=== PATIENT | female | born 1945 | race Caucasian/White ===

== ENCOUNTER 2022-02-17 15:45 | Inpatient (IN) | payer MEDICARE, BC ==
[2022-02-17 16:19] LABS: Hemoglobin 10.8 g/dL (12.0-16.0); Mean Corpuscular HGB CONC 28.7 g/dL (32.0-36.0); Mean Corpuscular Hemoglobin 23.4 pg (27.0-31.0); Mean Corpuscular Volume 81.7 fL (78.0-98.0); Mean Platelet Volume 7.7 fL (7.4-10.4); Platelet Count 207 thou/uL (130-400); RBC Distribution Width 16.2 % (11.5-14.5); Red Blood Cell (RBC) Count 4.62 mill/uL (4.20-5.40); White Blood Cell (WBC) Count 7.1 thou/uL (4.8-10.8)
[2022-02-17 16:40] LABS: ALT (SGPT) 30 U/L (8-55); AST (SGOT) 30 U/L (5-34); Albumin 3.6 g/dL (3.4-4.8); Alkaline Phosphatase 80 U/L (40-110); Anion Gap 12 mmol/L (10-20); BUN (Urea Nitrogen) 29 mg/dL (9.8-20.1); Bilirubin, Total 0.3 mg/dL (0.2-1.2); Calc. Creatinine Clearance 0 mL/min (70-130); Carbon Dioxide 29 mmol/L (23-31); Chloride 102 mmol/L (98-107); Globulin 3.6 g/dL (2.4-3.5); Glucose 124 mg/dL (83-110); Lipase 45 U/L (8-78); Potassium 4.4 mmol/L (3.5-5.1); Protein, Total 7.2 g/dL (5.8-8.1); Sodium 139 mmol/L (136-145)
[2022-02-17 16:51] LABS: Anisocytosis SLIGHT = 6-15 cells (100X) (0-5/hpf); Eosinophils 5 % (0-10); Hypochromia SLIGHT = 6-15 cells (100X) (0-5/hpf); Lymphocytes 25 % (21-51); MDiff Complete? YES; Monocytes 9 % (0-10); Neutrophil 60 % (42-75); Platelet Morphology Comment Appears Adequate; Polychromasia SLIGHT = 2-3 cells (100X) (0-2/hpf)
[2022-02-17] MEDS ORDERED: Furosemide 40 MG/4 ML VIAL ONE (17:09)
[2022-02-17 18:54] LABS: Bilirubin Negative (Negative); Blood, Urine 2+ (Negative); Clarity Clear (Clear); Glucose, Urine (Dipstick) Normal (Negative); Ketone, Urine Negative (Negative); Leukocyte Negative Leu/uL (Negative); Nitrite Negative (Negative); Protein, Urine (Dipstick) Negative (Neg-Trace); RBC/HPF 0-3 HPF (0-3); Specific Gravity, Urine 1.007 (1.002-1.036); Squamous Epithelial 0-3 HPF (0-3); Urobilinogen Normal mg/dL (Less than 2); WBC/HPF 0-3 HPF (0-3)
[2022-02-17 19:09] LABS: Bacteria/HPF Rare-Few HPF (None Seen)
[2022-02-17] MEDS ORDERED: Senokot S 8.6-50 MG TAB PO PRN (19:20)
[2022-02-17] MEDS ORDERED: Ondansetron PF 4 MG/2 ML Vial IVP PRN (19:20)
[2022-02-17 20:34] LABS: ALT (SGPT) 29 U/L (8-55); AST (SGOT) 28 U/L (5-34); Albumin 3.5 g/dL (3.4-4.8); Alkaline Phosphatase 77 U/L (40-110); Anion Gap 13 mmol/L (10-20); BUN (Urea Nitrogen) 28 mg/dL (9.8-20.1); Bilirubin, Total 0.4 mg/dL (0.2-1.2); Calc. Creatinine Clearance 0 mL/min (70-130); Calcium 9.1 mg/dL (7.8-10.44); Carbon Dioxide 33 mmol/L (23-31); Chloride 101 mmol/L (98-107); Globulin 3.4 g/dL (2.4-3.5); Glucose 89 mg/dL (83-110); Potassium 4.5 mmol/L (3.5-5.1); Protein, Total 6.9 g/dL (5.8-8.1); Sodium 142 mmol/L (136-145)
[2022-02-17 20:36] LABS: Hemoglobin 10.5 g/dL (12.0-16.0); Mean Corpuscular HGB CONC 29.3 g/dL (32.0-36.0); Mean Corpuscular Volume 81.9 fL (78.0-98.0); Mean Platelet Volume 7.6 fL (7.4-10.4); Platelet Count 192 thou/uL (130-400); Red Blood Cell (RBC) Count 4.37 mill/uL (4.20-5.40); White Blood Cell (WBC) Count 6.5 thou/uL (4.8-10.8)
[2022-02-17 20:50] LABS: Band 7 % (5-11); Hypochromia SLIGHT = 6-15 cells (100X) (0-5/hpf); Lymphocytes 15 % (21-51); MDiff Complete? YES; Monocytes 8 % (0-10); Neutrophil 70 % (42-75); Platelet Morphology Comment Appears Adequate
[2022-02-17] MEDS ORDERED: Carvedilol 6.25 MG TAB PO SCH (21:00)
[2022-02-17] MEDS: Apixaban 5 MG TAB PO SCH (21:55)
[2022-02-17] MEDS: Acetaminophen 325 MG TAB PO PRN (21:59)
[2022-02-17] MEDS: Melatonin 3 MG TAB PO PRN (22:00)
[2022-02-18] MEDS: Furosemide 40 MG/4 ML VIAL SLOW IVP SCH ×2 (05:56→15:28)
[2022-02-18] MEDS ORDERED: Carvedilol 6.25 MG TAB PO SCH (08:00)
[2022-02-18] MEDS: Aspirin Chewable 81 MG TAB PO SCH (10:03)
[2022-02-18] MEDS: Apixaban 5 MG TAB PO SCH ×2 (10:03→20:51)
[2022-02-18] MEDS: Spironolactone 25 MG TAB PO SCH (10:04)
[2022-02-18] MEDS: Polyethylene Glycol 3350 17 GM Packet PO SCH (10:04)
[2022-02-18] MEDS ORDERED: hydrALAZINE 20 MG/ML VIAL SLOW IVP PRN (12:59)
[2022-02-18 13:46] LABS: Anion Gap 14 mmol/L (10-20); BUN (Urea Nitrogen) 28 mg/dL (9.8-20.1); Calc. Creatinine Clearance 67 mL/min (70-130); Carbon Dioxide 31 mmol/L (23-31); Chloride 99 mmol/L (98-107); Glucose 118 mg/dL (83-110); Magnesium 1.7 mg/dL (1.6-2.6); Potassium 3.9 mmol/L (3.5-5.1); Sodium 140 mmol/L (136-145)
[2022-02-18] MEDS ORDERED: Electrolyte Replacement Protocol 1 EACH FS PRN (15:00)
[2022-02-18] MEDS ORDERED: Electrolyte Replacement Protocol FS PRN (18:00)
[2022-02-18] MEDS ORDERED: Magnesium 2 GM/50 ML(in water) 2 GM in Premix Bag 1 BAG IVPB SCH (18:00)
[2022-02-18] MEDS: Carvedilol 6.25 MG TAB PO SCH (18:24)
[2022-02-18] MEDS: Melatonin 3 MG TAB PO PRN (20:51)
[2022-02-19 04:56] LABS: Anion Gap 13 mmol/L (10-20); BUN (Urea Nitrogen) 30 mg/dL (9.8-20.1); Calc. Creatinine Clearance 74 mL/min (70-130); Calcium 8.8 mg/dL (7.8-10.44); Carbon Dioxide 33 mmol/L (23-31); Chloride 99 mmol/L (98-107); Glucose 87 mg/dL (83-110); Magnesium 2.2 mg/dL (1.6-2.6); Sodium 141 mmol/L (136-145)
[2022-02-19] MEDS: Furosemide 40 MG/4 ML VIAL SLOW IVP SCH (06:05)
[2022-02-19] MEDS: Apixaban 5 MG TAB PO SCH ×2 (08:49→20:04)
[2022-02-19] MEDS: Aspirin Chewable 81 MG TAB PO SCH (08:49)
[2022-02-19] MEDS: Carvedilol 6.25 MG TAB PO SCH ×2 (08:49→16:59)
[2022-02-19] MEDS: Polyethylene Glycol 3350 17 GM Packet PO SCH (08:50)
[2022-02-19] MEDS ORDERED: Spironolactone 25 MG TAB PO SCH (09:00)
[2022-02-19 12:31] VITALS: BMI 41.5
[2022-02-19] MEDS: Acetaminophen 325 MG TAB PO PRN (20:03)
[2022-02-19] MEDS: Melatonin 3 MG TAB PO PRN (20:04)
[2022-02-20 05:04] LABS: Anion Gap 13 mmol/L (10-20); BUN (Urea Nitrogen) 28 mg/dL (9.8-20.1); Calc. Creatinine Clearance 78 mL/min (70-130); Calcium 9.1 mg/dL (7.8-10.44); Carbon Dioxide 36 mmol/L (23-31); Chloride 95 mmol/L (98-107); Glucose 88 mg/dL (83-110); Magnesium 2.1 mg/dL (1.6-2.6); Potassium 4.1 mmol/L (3.5-5.1); Sodium 140 mmol/L (136-145)
[2022-02-20] MEDS: Carvedilol 6.25 MG TAB PO SCH ×2 (09:32→17:56)
[2022-02-20] MEDS: Apixaban 5 MG TAB PO SCH ×2 (09:33→19:07)
[2022-02-20] MEDS: Spironolactone 25 MG TAB PO SCH (09:35)
[2022-02-20] MEDS: Furosemide 40 MG/4 ML VIAL SLOW IVP SCH ×2 (09:36→12:04)
[2022-02-20] MEDS: Aspirin Chewable 81 MG TAB PO SCH (09:36)
[2022-02-20] MEDS: Polyethylene Glycol 3350 17 GM Packet PO SCH (09:38)
[2022-02-20] MEDS: Melatonin 3 MG TAB PO PRN (23:54)
[2022-02-20] MEDS: Acetaminophen 325 MG TAB PO PRN (23:54)
[2022-02-21 05:06] LABS: Anion Gap 12 mmol/L (10-20); BUN (Urea Nitrogen) 22 mg/dL (9.8-20.1); Calc. Creatinine Clearance 89 mL/min (70-130); Carbon Dioxide 36 mmol/L (23-31); Chloride 94 mmol/L (98-107); Glucose 88 mg/dL (83-110); Potassium 3.7 mmol/L (3.5-5.1); Sodium 138 mmol/L (136-145)
[2022-02-21] MEDS: Furosemide 40 MG/4 ML VIAL SLOW IVP SCH (08:24)
[2022-02-21] MEDS: Aspirin Chewable 81 MG TAB PO SCH (08:25)
[2022-02-21] MEDS: Apixaban 5 MG TAB PO SCH ×2 (08:25→20:44)
[2022-02-21] MEDS: Spironolactone 25 MG TAB PO SCH (08:25)
[2022-02-21] MEDS: Carvedilol 6.25 MG TAB PO SCH ×2 (08:25→17:29)
[2022-02-21] MEDS: Polyethylene Glycol 3350 17 GM Packet PO SCH (08:26)
[2022-02-21] MEDS: Melatonin 3 MG TAB PO PRN (20:48)
[2022-02-22] MEDS ORDERED: Pantoprazole 40 MG VIAL IVP SCH (02:30)
[2022-02-22 05:32] LABS: Anion Gap 16 mmol/L (10-20); BUN (Urea Nitrogen) 24 mg/dL (9.8-20.1); Calc. Creatinine Clearance 69 mL/min (70-130); Calcium 9.3 mg/dL (7.8-10.44); Carbon Dioxide 33 mmol/L (23-31); Chloride 92 mmol/L (98-107); Glucose 96 mg/dL (83-110); Potassium 3.8 mmol/L (3.5-5.1); Sodium 137 mmol/L (136-145)
[2022-02-22 05:34] LABS: Anisocytosis SLIGHT = 6-15 cells (100X) (0-5/hpf); Band 13 % (5-11); Eosinophils 5 % (0-10); Hemoglobin 11.5 g/dL (12.0-16.0); Lymphocytes 25 % (21-51); MDiff Complete? YES; Mean Corpuscular HGB CONC 29.9 g/dL (32.0-36.0); Mean Corpuscular Hemoglobin 23.7 pg (27.0-31.0); Mean Corpuscular Volume 79.2 fL (78.0-98.0); Mean Platelet Volume 8.2 fL (7.4-10.4); Monocytes 4 % (0-10); Neutrophil 53 % (42-75); Platelet Count 206 thou/uL (130-400); RBC Distribution Width 15.8 % (11.5-14.5); Red Blood Cell (RBC) Count 4.85 mill/uL (4.20-5.40); White Blood Cell (WBC) Count 5.9 thou/uL (4.8-10.8)
[2022-02-22] MEDS: Polyethylene Glycol 3350 17 GM Packet PO SCH (08:29)
[2022-02-22] MEDS: Carvedilol 6.25 MG TAB PO SCH ×2 (08:30→17:09)
[2022-02-22] MEDS: Spironolactone 25 MG TAB PO SCH (08:30)
[2022-02-22] MEDS: Apixaban 5 MG TAB PO SCH (08:30)
[2022-02-22] MEDS: Furosemide 40 MG/4 ML VIAL SLOW IVP SCH (08:31)
[2022-02-22] MEDS: Aspirin Chewable 81 MG TAB PO SCH (08:31)
[2022-02-22] MEDS: Pantoprazole 40 MG VIAL IVP SCH ×2 (08:32→21:02)
[2022-02-22 15:03] LABS: Actual Bicarbonate (HCO3a) 32.5 mEq/L (22-28); Base Excess (BEa) 6.8 mEq/L (-2.0 to +3.0); CO2 Tension 51.2 mmHg (35.0-45.0); Calcium, Ionized (arterial) 1.13 mmol/L (1.12-1.30); Carboxyhemoglobin (COHb) 1.2 gm% (0.0-3.0); Hemoglobin (Hb) 12.6 g/dL (12.0-16.0); O2 Tension (PaO2), arterial 67.6 mmHg (> 70.0); Potassium - ABG Lab 3.57 mmol/L (3.70-5.30); pH, Arterial 7.42 (7.35-7.45)
[2022-02-22 15:08] LABS: Puncture Site RBA
[2022-02-22] MEDS: Melatonin 3 MG TAB PO PRN (21:02)
[2022-02-22] MEDS ORDERED: Lorazepam 1 MG TAB PO PRN (21:30)
[2022-02-23] MEDS: Acetaminophen 325 MG TAB PO PRN (05:25)
[2022-02-23 06:35] LABS: Iron 37 ug/dL (50-170); Iron Binding Capacity, Total 386 mcg/dL (265-497)
[2022-02-23] MEDS: Spironolactone 25 MG TAB PO SCH (07:58)
[2022-02-23] MEDS: Carvedilol 6.25 MG TAB PO SCH ×2 (07:58→16:18)
[2022-02-23 08:00] LABS: Anion Gap 17 mmol/L (10-20); BUN (Urea Nitrogen) 31 mg/dL (9.8-20.1); Calc. Creatinine Clearance 67 mL/min (70-130); Calcium 9.1 mg/dL (7.8-10.44); Carbon Dioxide 32 mmol/L (23-31); Chloride 92 mmol/L (98-107); Glucose 89 mg/dL (83-110); Potassium 3.7 mmol/L (3.5-5.1); Sodium 137 mmol/L (136-145)
[2022-02-23] MEDS: Aspirin Chewable 81 MG TAB PO SCH (09:32)
[2022-02-23] MEDS: Lorazepam 1 MG TAB PO SCH (09:32)
[2022-02-23] MEDS: Polyethylene Glycol 3350 17 GM Packet PO SCH (09:32)
[2022-02-23] MEDS: Pantoprazole 40 MG VIAL IVP SCH ×2 (09:42→20:49)
[2022-02-23 10:24] LABS: Band 8 % (5-11); Eosinophils 1 % (0-10); Hemoglobin 11.8 g/dL (12.0-16.0); Lymphocytes 24 % (21-51); MDiff Complete? YES; Mean Corpuscular HGB CONC 29.5 g/dL (32.0-36.0); Mean Corpuscular Hemoglobin 23.6 pg (27.0-31.0); Mean Corpuscular Volume 80.1 fL (78.0-98.0); Mean Platelet Volume 8.6 fL (7.4-10.4); Monocytes 13 % (0-10); Neutrophil 53 % (42-75); Platelet Count 199 thou/uL (130-400); Platelet Morphology Comment Appears Adequate; Polychromasia SLIGHT = 2-3 cells (100X) (0-2/hpf); RBC Distribution Width 15.9 % (11.5-14.5); Reactive Lymphocytes 1 % (0-10); Red Blood Cell (RBC) Count 4.98 mill/uL (4.20-5.40); White Blood Cell (WBC) Count 6.7 thou/uL (4.8-10.8)
[2022-02-23] MEDS: Melatonin 3 MG TAB PO PRN (20:57)
[2022-02-24 08:53] LABS: Anion Gap 14 mmol/L (10-20); BUN (Urea Nitrogen) 28 mg/dL (9.8-20.1); Calc. Creatinine Clearance 78 mL/min (70-130); Calcium 9.3 mg/dL (7.8-10.44); Carbon Dioxide 34 mmol/L (23-31); Chloride 97 mmol/L (98-107); Glucose 90 mg/dL (83-110); Potassium 4.1 mmol/L (3.5-5.1); Sodium 141 mmol/L (136-145)
[2022-02-24] MEDS: Carvedilol 6.25 MG TAB PO SCH ×2 (09:03→17:57)
[2022-02-24] MEDS: Aspirin Chewable 81 MG TAB PO SCH (09:04)
[2022-02-24] MEDS: Polyethylene Glycol 3350 17 GM Packet PO SCH (09:04)
[2022-02-24] MEDS: Spironolactone 25 MG TAB PO SCH (09:04)
[2022-02-24] MEDS: Lorazepam 1 MG TAB PO SCH (09:05)
[2022-02-24] MEDS: Pantoprazole 40 MG VIAL IVP SCH (09:05)
[2022-02-24 09:18] LABS: Band 16 % (5-11); Eosinophils 5 % (0-10); Hemoglobin 11.7 g/dL (12.0-16.0); Hypochromia SLIGHT = 6-15 cells (100X) (0-5/hpf); Lymphocytes 24 % (21-51); MDiff Complete? YES; Mean Corpuscular HGB CONC 28.7 g/dL (32.0-36.0); Mean Corpuscular Hemoglobin 23.2 pg (27.0-31.0); Mean Corpuscular Volume 80.9 fL (78.0-98.0); Monocytes 14 % (0-10); Myelocyte 1 % (0-0); Neutrophil 39 % (42-75); Platelet Count 180 thou/uL (130-400); Platelet Morphology Comment Appears Adequate; Polychromasia SLIGHT = 2-3 cells (100X) (0-2/hpf); RBC Distribution Width 15.9 % (11.5-14.5); Red Blood Cell (RBC) Count 5.02 mill/uL (4.20-5.40); White Blood Cell (WBC) Count 6.7 thou/uL (4.8-10.8)
[2022-02-24 16:18] VITALS: BP 139/59; TEMP 97.5
== END 2022-02-24 20:52 | DRG 291 ==
LOC: ERS 15:45 → 2NO 17:57
PROVIDERS: ADMIT Internal Medicine; ATTEND Internal Medicine
DX: I13.0 Hypertensive heart and chronic kidney disease with heart failure and stage 1 through stage 4 chronic kidney disease, or unspecified chronic kidney disease (principal); J96.01 Acute respiratory failure with hypoxia; I50.33 Acute on chronic diastolic (congestive) heart failure; K92.1 Melena; Z66 Do not resuscitate; Z20.822 Contact with and (suspected) exposure to COVID-19; E83.42 Hypomagnesemia; N18.30 Chronic kidney disease, stage 3 unspecified; F41.9 Anxiety disorder, unspecified; E66.01 Morbid (severe) obesity due to excess calories; D50.9 Iron deficiency anemia, unspecified; G47.33 Obstructive sleep apnea (adult) (pediatric); Z88.1 Allergy status to other antibiotic agents; Z88.8 Allergy status to other drugs, medicaments and biological substances; Z79.82 Long term (current) use of aspirin; Z79.01 Long term (current) use of anticoagulants; Z79.899 Other long term (current) drug therapy; Z98.49 Cataract extraction status, unspecified eye; Z68.39 Body mass index [BMI] 39.0-39.9, adult; Z86.19 Personal history of other infectious and parasitic diseases
CPT/HCPCS: 36415; 36600; 71045; 80048; 80053; 81003; 81015; 82274; 82728; 82805; 83540; 83550; 83690; 83735; 83880; 84484; 85025; 93005; 93306; 96374; C9113; J1940; J3475; U0003; U0005

== ENCOUNTER 2022-03-09 17:54 | Inpatient (IN) | payer MEDICARE, BC ==
[2022-03-09 18:35] LABS: Hemoglobin 11.1 g/dL (12.0-16.0); Mean Corpuscular HGB CONC 30.2 g/dL (32.0-36.0); Mean Corpuscular Hemoglobin 24.1 pg (27.0-31.0); Mean Corpuscular Volume 79.9 fL (78.0-98.0); Mean Platelet Volume 9.7 fL (7.4-10.4); Platelet Count 166 thou/uL (130-400); RBC Distribution Width 16.4 % (11.5-14.5); White Blood Cell (WBC) Count 12.6 thou/uL (4.8-10.8)
[2022-03-09 18:50] LABS: Prothrombin Time 31.9 sec (12.0-14.7)
[2022-03-09 18:51] LABS: PTT 51.4 sec (22.9-36.1)
[2022-03-09 18:55] LABS: Band 27 % (5-11); Eosinophils 1 % (0-10); Hypochromia SLIGHT = 6-15 cells (100X) (0-5/hpf); Lymphocytes 2 % (21-51); MDiff Complete? YES; Monocytes 7 % (0-10); Neutrophil 59 % (42-75); Ovalocytes SLIGHT = 2-5 cells (100X) (0-1/hpf); Platelet Morphology Comment Appears Adequate; Polychromasia SLIGHT = 2-3 cells (100X) (0-2/hpf); Reactive Lymphocytes 4 % (0-10)
[2022-03-09 19:00] LABS: ALT (SGPT) 38 U/L (8-55); AST (SGOT) 68 U/L (5-34); Alkaline Phosphatase 122 U/L (40-110); Anion Gap 12 mmol/L (10-20); BUN (Urea Nitrogen) 45 mg/dL (9.8-20.1); Bilirubin, Total 0.5 mg/dL (0.2-1.2); Calc. Creatinine Clearance 0 mL/min (70-130); Carbon Dioxide 28 mmol/L (23-31); Chloride 96 mmol/L (98-107); Estimated GFR 44; Glucose 120 mg/dL (83-110); Potassium 4.1 mmol/L (3.5-5.1); Sodium 132 mmol/L (136-145)
[2022-03-09 19:57] LABS: Bacteria/HPF 2+ HPF (None Seen); Bilirubin Negative (Negative); Blood, Urine 3+ (Negative); Clarity Turbid (Clear); Glucose, Urine (Dipstick) Normal (Negative); Ketone, Urine Negative (Negative); Leukocyte 250 Leu/uL (Negative); Nitrite Negative (Negative); Protein, Urine (Dipstick) 100 mg/dL (Neg-Trace); RBC/HPF Greater than 50 HPF (0-3); Specific Gravity, Urine 1.026 (1.002-1.036); Squamous Epithelial 0-3 HPF (0-3)
[2022-03-09] MEDS ORDERED: Acetaminophen 650 MG Suppository PR PRN (20:59)
[2022-03-09] MEDS ORDERED: Ondansetron PF 4 MG/2 ML Vial IVP PRN (21:00)
[2022-03-09] MEDS ORDERED: Ondansetron ODT 4 MG TAB SL PRN (21:00)
[2022-03-09] MEDS ORDERED: Acetaminophen 325 MG TAB PO PRN (21:00)
[2022-03-09] MEDS: Sodium Chloride 0.9% 1,000 ML IV SCH (21:31)
[2022-03-10 01:42] VITALS: BMI 37.3
[2022-03-10] MEDS ORDERED: traZODone HCl 50 MG TAB PO PRN (02:50)
[2022-03-10 03:35] LABS: #Lymphocytes 0.7 thou/uL (1.20-3.40); #Monocytes 1.3 thou/uL (0.11-0.59); #Neutrophils 12.3 thou/uL (1.40-6.50); %Basophils 0.1 % (0.0-1.0); %Eosinophils 0.1 % (0.0-10.0); %Monocytes 8.8 % (0.0-10.0); %Neutrophils 86.1 % (42.0-75.0); Mean Corpuscular HGB CONC 29.6 g/dL (32.0-36.0); Mean Corpuscular Hemoglobin 23.8 pg (27.0-31.0); Mean Corpuscular Volume 80.5 fL (78.0-98.0); Mean Platelet Volume 9.3 fL (7.4-10.4); Platelet Count 154 thou/uL (130-400); RBC Distribution Width 16.5 % (11.5-14.5); Red Blood Cell (RBC) Count 4.19 mill/uL (4.20-5.40); White Blood Cell (WBC) Count 14.2 thou/uL (4.8-10.8)
[2022-03-10 03:58] LABS: Anion Gap 14 mmol/L (10-20); BUN (Urea Nitrogen) 49 mg/dL (9.8-20.1); Calc. Creatinine Clearance 44 mL/min (70-130); Calcium 8.9 mg/dL (7.8-10.44); Carbon Dioxide 29 mmol/L (23-31); Chloride 98 mmol/L (98-107); Estimated GFR 37; Glucose 114 mg/dL (83-110); Potassium 4.1 mmol/L (3.5-5.1); Sodium 137 mmol/L (136-145)
[2022-03-10] MEDS: Sodium Chloride 0.9% 1,000 ML IV SCH ×3 (04:04→15:57)
[2022-03-10] MEDS ORDERED: Apixaban 5 MG TAB PO SCH (09:00)
[2022-03-10 09:13] LABS: Actual Bicarbonate (HCO3a) 27.3 mEq/L (22-28); CO2 Tension 45.9 mmHg (35.0-45.0); Calcium, Ionized (arterial) 1.14 mmol/L (1.12-1.30); Carboxyhemoglobin (COHb) 0.3 gm% (0.0-3.0); Hemoglobin (Hb) 11.1 g/dL (12.0-16.0); O2 Tension (PaO2), arterial 97.4 mmHg (> 70.0); Potassium - ABG Lab 4.02 mmol/L (3.70-5.30); pH, Arterial 7.39 (7.35-7.45)
[2022-03-10 09:22] LABS: Puncture Site RRA
[2022-03-10] MEDS ORDERED: DAPTOmycin 500 MG in Sodium Chloride 0.9% 100 ML IVPB SCH (18:00)
[2022-03-10] MEDS: DAPTOmycin 700 MG in Sodium Chloride 0.9% 100 ML IVPB SCH (20:00)
[2022-03-11] MEDS: Sodium Chloride 0.9% 1,000 ML IV SCH ×3 (02:29→14:48)
[2022-03-11 04:39] LABS: #Lymphocytes 1.3 thou/uL (1.20-3.40); #Monocytes 1.4 thou/uL (0.11-0.59); #Neutrophils 11.8 thou/uL (1.40-6.50); %Eosinophils 0.1 % (0.0-10.0); %Lymphocytes 9.2 % (21.0-51.0); %Monocytes 9.8 % (0.0-10.0); %Neutrophils 80.9 % (42.0-75.0); Hemoglobin 10.7 g/dL (12.0-16.0); Mean Corpuscular HGB CONC 28.7 g/dL (32.0-36.0); Mean Corpuscular Hemoglobin 23.3 pg (27.0-31.0); Mean Corpuscular Volume 81.3 fL (78.0-98.0); Mean Platelet Volume 9.9 fL (7.4-10.4); Platelet Count 165 thou/uL (130-400); RBC Distribution Width 16.8 % (11.5-14.5); Red Blood Cell (RBC) Count 4.57 mill/uL (4.20-5.40); White Blood Cell (WBC) Count 14.6 thou/uL (4.8-10.8)
[2022-03-11 04:55] LABS: Anion Gap 17 mmol/L (10-20); BUN (Urea Nitrogen) 47 mg/dL (9.8-20.1); CK (CPK) 93 U/L (29-168); Calc. Creatinine Clearance 41 mL/min (70-130); Carbon Dioxide 23 mmol/L (23-31); Chloride 105 mmol/L (98-107); Estimated GFR 34; Glucose 102 mg/dL (83-110); Potassium 5.2 mmol/L (3.5-5.1); Sodium 140 mmol/L (136-145)
[2022-03-11] MEDS ORDERED: Digoxin 0.5 MG/2 ML AMP SLOW IVP SCH (08:45)
[2022-03-11] MEDS ORDERED: Lactated Ringer's 1,000 ML IV SCH (09:00)
[2022-03-11 11:43] VITALS: BP 103/69
[2022-03-11] MEDS: Digoxin 0.5 MG/2 ML AMP SLOW IVP SCH ×2 (14:45→17:47)
[2022-03-11] MEDS: Lactated Ringer's 1,000 ML IV SCH (17:46)
[2022-03-11] MEDS: DAPTOmycin 700 MG in Sodium Chloride 0.9% 100 ML IVPB SCH (20:31)
[2022-03-12 03:48] VITALS: TEMP 97.5
[2022-03-12] MEDS: Lactated Ringer's 1,000 ML IV SCH (03:55)
[2022-03-12 04:44] LABS: INR-International Normal Ratio 3.4; Prothrombin Time 35.2 sec (12.0-14.7)
[2022-03-12 04:45] LABS: PTT 44.9 sec (22.9-36.1)
[2022-03-12] MEDS ORDERED: Digoxin 0.5 MG/2 ML AMP SLOW IVP SCH (09:00)
== END 2022-03-12 08:41 | disposition expired | DRG 871 ==
LOC: ERS 17:54 → IMCU/EMU 19:55
PROVIDERS: ADMIT Internal Medicine; ATTEND Internal Medicine
PROC: 3E04329 Introduction of Other Anti-infective into Central Vein, Percutaneous Approach (ICD-10-PCS; principal; 2022-03-09)
PROC: 02HV33Z Insertion of Infusion Device into Superior Vena Cava, Percutaneous Approach (ICD-10-PCS; 2022-03-09)
PROC: 5A09357 Assistance with Respiratory Ventilation, Less than 24 Consecutive Hours, Continuous Positive Airway Pressure (ICD-10-PCS; 2022-03-11)
DX: A41.02 Sepsis due to Methicillin resistant Staphylococcus aureus (principal); G93.41 Metabolic encephalopathy; J96.01 Acute respiratory failure with hypoxia; J96.02 Acute respiratory failure with hypercapnia; N17.9 Acute kidney failure, unspecified; I50.32 Chronic diastolic (congestive) heart failure; I31.3 Pericardial effusion (noninflammatory); L12.0 Bullous pemphigoid; Z66 Do not resuscitate; R65.20 Severe sepsis without septic shock; I11.0 Hypertensive heart disease with heart failure; I48.0 Paroxysmal atrial fibrillation; E78.5 Hyperlipidemia, unspecified; M19.019 Primary osteoarthritis, unspecified shoulder; I08.3 Combined rheumatic disorders of mitral, aortic and tricuspid valves; E86.9 Volume depletion, unspecified; R31.9 Hematuria, unspecified; R00.1 Bradycardia, unspecified; Z79.01 Long term (current) use of anticoagulants; Z86.61 Personal history of infections of the central nervous system; Z98.49 Cataract extraction status, unspecified eye; Z88.1 Allergy status to other antibiotic agents; Z88.0 Allergy status to penicillin; Z88.8 Allergy status to other drugs, medicaments and biological substances; Z79.899 Other long term (current) drug therapy; Z79.82 Long term (current) use of aspirin
CPT/HCPCS: 36415; 36416; 36569; 36600; 71045; 76770; 80048; 81003; 81015; 82533; 82550; 82805; 83605; 84443; 85025; 85610; 85730; 87040; 87077; 87086; 87149; 93306; 94640; 94760; J0878; J1160; J1644; J3490; J7050; J7120; J7620

== ENCOUNTER → 2022-03-09 | Day surgery (SDC) | payer MEDICARE, BC | END | disposition home or self-care (01) | LOC: RAD 12:32 | PROC: 02HV33Z Insertion of Infusion Device into Superior Vena Cava, Percutaneous Approach (ICD-10-PCS; principal; 2022-03-09) | DX: A49.02 Methicillin resistant Staphylococcus aureus infection, unspecified site (principal); Z79.2 Long term (current) use of antibiotics; Z88.0 Allergy status to penicillin; Z88.1 Allergy status to other antibiotic agents; Z88.8 Allergy status to other drugs, medicaments and biological substances | CPT/HCPCS: 36569 ==